=== PATIENT | male | born 1985 | race Hispanic/Latino ===

== ENCOUNTER 2018-05-29 23:24 | Emergency (ER) | payer SELFPAY ==
[2018-05-29] MEDS ORDERED: LIDOCAINE 1% MPF 5 ML VIAL ONE (23:54)
[2018-05-30] MEDS ORDERED: LIDOCAINE 1% MPF 5 ML VIAL ONE (00:16)
--- NOTE | 2018-05-30 00:25 | ER ---
Nurse's Notes [facility] Name: Peng Rasmussen Age: 32 yrs Sex: Male : 1985 Arrival Date: 05/29/2018 Time: 23:24 Bed 24 Private MD: Diagnosis: Laceration without foreign body of knee Presentation: 05/29 23:34 Presenting complaint: Patient states: "I was at work cutting things with a chain saw jd3 and it slipped and I cut my right knee.". Transition of care: patient was not received from another setting of care. Complicating Factors: There are no complicating factors for this patient. Onset of symptoms was May 29, 2018. Risk Assessment: Do you want to hurt yourself or someone else? Patient reports no desire to harm self or others. Initial Sepsis Screen: Does the patient meet any 2 criteria? No. Patient's initial sepsis screen is negative. Does the patient have a suspected source of infection? No. Patient's initial sepsis screen is negative. Care prior to arrival: None. 23:34 Method Of Arrival: Ambulatory jd3 23:34 Acuity: CALLY 4 jd3 Historical: - Allergies: 23:36 No Known Allergies; jd3 - Home Meds: 23:36 None [Active]; jd3 - PMHx: 23:36 None; jd3 - PSHx: 23:36 None; jd3 - Immunization history:: Adult Immunizations unknown. - Social history:: Smoking status: Patient/guardian denies using tobacco. - Ebola Screening: : Patient negative for fever greater than or equal to 101.5 degrees Fahrenheit, and additional compatible Ebola Virus Disease symptoms. Screenin:53 Abuse screen: Denies threats or abuse. Denies injuries from another. Nutritional mg2 screening: No deficits noted. Tuberculosis screening: No symptoms or risk factors identified. Fall Risk None identified. Assessment: 23:49 General: Appears in no apparent distress. comfortable, Behavior is calm, cooperative. mg2 Pain: Complains of pain in right knee Pain does not radiate. Pain currently is 1 out of 10 on a pain scale. Quality of pain is described as aching, Pain began suddenly. Neuro: Level of Consciousness is awake, alert, obeys commands, Oriented to person, place, time, situation. Cardiovascular: Capillary refill < 3 seconds Patient's skin is warm and dry. Respiratory: Airway is patent Respiratory effort is even, unlabored, Respiratory pattern is regular, symmetrical. GI: No signs and/or symptoms were reported involving the gastrointestinal system. : No signs and/or symptoms were reported regarding the genitourinary system. EENT: No signs and/or symptoms were reported regarding the EENT system. Derm: Skin is healthy with good turgor. Musculoskeletal: Circulation, motion, and sensation intact. Capillary refill < 3 seconds. Injury Description: Laceration sustained to right knee is jagged, 0.5 to 2.5 cm long, not bleeding, was sustained 30-60 minutes ago. is bleeding no active bleeding noted. Vital Signs: 23:36 BP 139 / 85; Pulse 69; Resp 16 S; Temp 98.0(O); Pulse Ox 99% on R/A; Weight 97.07 kg jd3 (R); Height 5 ft. 4 in. (162.56 cm) (R); Pain 5/10; 05/30 00:30 BP 122 / 78; Pulse 80; Resp 18; Pulse Ox 100% on R/A; Pain 0/10; mg2 05/29 23:36 Body Mass Index 36.73 (97.07 kg, 162.56 cm) jd3 ED Course: 05/29 11:50 Wound care: to laceration located on medial aspect of right knee was cleaned with jp3 Hibiclens, soaked in Hibiclens solution, debrided using Betadine scrub, irrigated with normal saline, Patient tolerated well. 23:24 Patient arrived in ED. am2 23:26 Julia Auguste FNP-C is PHCP. kb 23:26 Kenneth Garcia MD is Attending Physician. kb 23:35 Triage completed. jd3 23:36 Arm band placed on. jd3 23:48 Claude Hannah, KATIE is Primary Nurse. mg2 23:53 Patient did not have IV access during this emergency room visit. mg2 23:54 Patient has correct armband on for positive identification. mg2 05/30 00:25 Wound care: was dressed with Neosporin, 4X4s, tegaderm on top of gauze.. jp3 00:29 Assist provider with laceration repair on right knee that was 2.5 cm. or less using 8 mg2 stitches made by the provider. Set up tray. Performed by Julia SYED Dressed with 4X4s, Patient tolerated well. Administered Medications: 05/29 23:54 Drug: Lidocaine (1 %) 1 vials {Note: administered by the provider.} Volume: 5 ml; mg2 Route: Infiltration; 05/30 00:29 Follow up: Response: No adverse reaction; Marked relief of symptoms mg2 Outcome: 00:23 Discharge ordered by . luzma 00:30 Discharged to home ambulatory, with family. mg2 00:30 Condition: stable 00:30 Discharge instructions given to patient, family, Instructed on discharge instructions, follow up and referral plans. Demonstrated understanding of instructions, follow-up care. 00:31 Patient left the ED. mg2 Signatures: Julia Auguste FNP-C FNP-Dariela Duval am2 Liu Aiken RN RN jd3 Claude Hannah RN RN mg2 Alfa Melo jp3
--- NOTE | 2018-05-30 00:25 | EDPHYS ---
Physician Documentation [facility] Name: Peng Rasmussen Age: 32 yrs Sex: Male : 1985 Arrival Date: 05/29/2018 Time: 23:24 Bed 24 Private MD: ED Physician Kenneth Garcia HPI: 05/30 00:22 This 32 yrs old Male presents to ER via Ambulatory with complaints of kb Laceration - To Knee. 00:22 The patient has a laceration related to: working, chain saw, occurred at work, and kb there are no complicating factors. The injury was accidental. The laceration(s) is(are) located on the right knee. Onset: The symptoms/episode began/occurred at 16:00. Associated signs and symptoms: The patient has no apparent associated signs or symptoms. The patient has not experienced similar symptoms in the past. The patient has not recently seen a physician. Historical: - Allergies: 05/29 23:36 No Known Allergies; jd3 - Home Meds: 23:36 None [Active]; jd3 - PMHx: 23:36 None; jd3 - PSHx: 23:36 None; jd3 - Immunization history:: Adult Immunizations unknown. - Social history:: Smoking status: Patient/guardian denies using tobacco. - Ebola Screening: : Patient negative for fever greater than or equal to 101.5 degrees Fahrenheit, and additional compatible Ebola Virus Disease symptoms. ROS: 05/30 00:21 Constitutional: Negative for fever, chills, and weight loss, Cardiovascular: Negative kb for chest pain, palpitations, and edema, Respiratory: Negative for shortness of breath, cough, wheezing, and pleuritic chest pain, Abdomen/GI: Negative for abdominal pain, nausea, vomiting, diarrhea, and constipation, Neuro: Negative for headache, weakness, numbness, tingling, and seizure. Skin: Positive for laceration(s), of the right knee. Exam: 00:21 Constitutional: This is a well developed, well nourished patient who is awake, alert, kb and in no acute distress. Head/Face: Normocephalic, atraumatic. Chest/axilla: Normal chest wall appearance and motion. Nontender with no deformity. No lesions are appreciated. Cardiovascular: Regular rate and rhythm with a normal S1 and S2. No gallops, murmurs, or rubs. Normal PMI, no JVD. No pulse deficits. Respiratory: Lungs have equal breath sounds bilaterally, clear to auscultation and percussion. No rales, rhonchi or wheezes noted. No increased work of breathing, no retractions or nasal flaring. Abdomen/GI: Soft, non-tender, with normal bowel sounds. No distension or tympany. No guarding or rebound. No evidence of tenderness throughout. MS/ Extremity: Pulses equal, no cyanosis. Neurovascular intact. Full, normal range of motion. Neuro: Awake and alert, GCS 15, oriented to person, place, time, and situation. Cranial nerves II-XII grossly intact. Motor strength 5/5 in all extremities. Sensory grossly intact. Cerebellar exam normal. Normal gait. 00:21 Skin: injury, laceration(s), the wound is approximately 6 cm(s), of the right knee, that can be described as contaminated, no foreign body, linear, without bleeding. Vital Signs: 05/29 23:36 BP 139 / 85; Pulse 69; Resp 16 S; Temp 98.0(O); Pulse Ox 99% on R/A; Weight 97.07 kg jd3 (R); Height 5 ft. 4 in. (162.56 cm) (R); Pain 5/10; 05/30 00:30 BP 122 / 78; Pulse 80; Resp 18; Pulse Ox 100% on R/A; Pain 0/10; mg2 05/29 23:36 Body Mass Index 36.73 (97.07 kg, 162.56 cm) jd3 Laceration: 00:17 Wound Repair of 6cm ( 2.4in ) subcutaneous laceration to right knee. Linear shaped.. kb Distal neuro/vascular/tendon intact. Anesthesia: Wound infiltrated with 7 mls of 1% lidocaine. Wound prep: Extensive cleansing with hibiclenz by component technician, Wound irrigation with saline by component technician. Skin closed with 7 4-0 Prolene using interrupted sutures and sterile technique. Dressed with Neosporin, non-adherent dressing. Patient tolerated well. MDM: 05/29 23:26 Patient medically screened. kb 05/30 00:17 Data reviewed: vital signs, nurses notes. Data interpreted: Pulse oximetry: on room air kb is 99 %. Interpretation: normal. Counseling: I had a detailed discussion with the patient and/or guardian regarding: the historical points, exam findings, and any diagnostic results supporting the discharge/admit diagnosis, the need for outpatient follow up, a family practitioner, to return to the emergency department if symptoms worsen or persist or if there are any questions or concerns that arise at home. 05/29 23:41 Order name: Prolene, Sutures; Complete Time: 23:55 kb 04 23:41 Order name: Dressing - Wound; Complete Time: 23:55 kb 05/29 23:41 Order name: Gloves, Sterile; Complete Time: 23:55 kb 05/29 23:41 Order name: Setup Suture Tray; Complete Time: 23:55 kb Administered Medications: 05/29 23:54 Drug: Lidocaine (1 %) 1 vials {Note: administered by the provider.} Volume: 5 ml; mg2 Route: Infiltration; 05/30 00:29 Follow up: Response: No adverse reaction; Marked relief of symptoms mg2 Disposition: 08:56 Co-signature as Attending Physician, Kenneth Garcia MD I agree with the assessment and danilo plan of care. Disposition: 05/30/18 00:23 Discharged to Home. Impression: Laceration without foreign body of knee. - Condition is Stable. - Discharge Instructions: Laceration Care, Adult, [id number]. - Medication Reconciliation Form, Thank You Letter, Antibiotic Education, Prescription Opioid Use form. - Follow up: Emergency Department; When: As needed; Reason: Worsening of condition. Follow up: Private Physician; When: 2 - 3 days; Reason: Recheck today's complaints, Continuance of care, Re-evaluation by your physician. Signatures: Julia Auguste, BUSINESS DATABASE ANALYST-C BUSINESS DATABASE ANALYST-Kenneth Burdick MD MD cha Davies, Jonathon, RN RN jClaude Watson RN RN mg2 Corrections: (The following items were deleted from the chart) 00:22 00:21 Skin: injury, laceration(s), the wound is approximately 6 cm(s), of the right kb knee, that can be described as clean, no foreign body, linear, without bleeding, kb 00:31 00:23 05/30/2018 00:23 Discharged to Home. Impression: Laceration without foreign body mg2 of knee. Condition is Stable. Forms are Medication Reconciliation Form, Thank You Letter, Antibiotic Education, Prescription Opioid Use. Follow up: Emergency Department; When: As needed; Reason: Worsening of condition. Follow up: Private Physician; When: 2 - 3 days; Reason: Recheck today's complaints, Continuance of care, Re-evaluation by your physician. kb
== END 2018-05-30 00:31 | disposition home or self-care (01) ==
LOC: ER 23:24
PROC: 0JQN0ZZ Repair Right Lower Leg Subcutaneous Tissue and Fascia, Open Approach (ICD-10-PCS; principal; 2018-05-29)
DX: S81.011A Laceration without foreign body, right knee, initial encounter (principal); W29.3XXA Contact with powered garden and outdoor hand tools and machinery, initial encounter
CPT/HCPCS: 99284

== ENCOUNTER 2022-04-26 04:39 | Emergency (ER) | payer OTHER, SELFPAY ==
[2022-04-26] MEDS ORDERED: ACETAMINOPHEN 500 MG TAB ONE (05:47)
[2022-04-26] MEDS ORDERED: MORPHINE 4 MG/ML SYR ONE (05:47)
[2022-04-26] MEDS ORDERED: ONDANSETRON 4 MG/2 ML VIAL ONE (05:48)
[2022-04-26] MEDS ORDERED: NA CHLORIDE 0.9% 1,000 ML ONE (05:48)
[2022-04-26] MEDS ORDERED: FAMOTIDINE 20 MG/2 ML VIAL IV ONE (05:48)
[2022-04-26] MEDS ORDERED: PROMETHAZINE 25 MG TABLET ONE (05:48)
[2022-04-26 05:58] LABS: Absolute Lymphocytes (CBC) 1.9 K/uL (0.7-4.9); Hematocrit 39.5 % (39.6-49.0); Lymphocytes % 17.6 % (15.3-44.8); MCV 91.5 fL (80-100); MPV 8.8 fL (7.6-11.3); RBC Red Blood Cell Count 4.31 M/uL (4.33-5.43)
[2022-04-26 06:17] LABS: Albumin 3.6 g/dL (3.4-5.0); Bilirubin Total 0.8 mg/dL (0.2-1.0); Potassium 3.7 mmol/L (3.5-5.1); Protein, Total 7.6 g/dL (6.4-8.2)
[2022-04-26 06:50] LABS: SARS-COV-2 RT PCR NEGATIVE (NEGATIVE)
[2022-04-26] MEDS ORDERED: CIPROFLOXACIN 400mg IV 0 MG/0 ML BAG IV ONE (07:33)
[2022-04-26] MEDS ORDERED: METRONIDAZOLE 500mg IVPB 500 MG/100 ML BAG IV ONE (07:33)
[2022-04-26] MEDS ORDERED: CEFTRIAXONE 1000 MG/VIAL ONE (07:42)
[2022-04-26] MEDS ORDERED: NA CHLORIDE 0.9% 100 ML ONE (07:43)
[2022-04-26] MEDS ORDERED: KETOROLAC 30 MG/ML INJ ONE (07:43)
[2022-04-26 10:54] VITALS: BP 183/104; TEMP 97.9; O2SAT 100
--- NOTE | 2022-04-26 15:30 | RAD REPORT ---
EXAM DESCRIPTION: CT - Head Brain Wo Cont - 04/26/2022 7:03 am CLINICAL HISTORY: PAIN COMPARISON: None available TECHNIQUE: Axial CT of the head obtained from the skull apex to the skull base without contrast. Thi s exam was performed according to our departmental dose-optimization program, which includes automate d exposure control, adjustment of the mA and/or kV according to patient size and/or use of iterative reconstruction technique. FINDINGS: No acute intracranial hemorrhage identified. No mass, mass effect, shift of the midline, a bnormal extra-axial fluid collection or CT evidence of acute ischemic change identified. The ventricu lar system is unremarkable. No acute abnormalities of the supratentorial white matter, basal gangli a, cerebellum, or brainstem. The visualized paranasal sinuses and the mastoid air cells are relatively well aerated. No skull fr acture identified. Visualized orbits and globes are unremarkable. IMPRESSION: 1. No acute intracranial abnormality identified. Electronically signed by: Rao Sifuentes 04/26/2022 6:18 AM PARBOILER Due to temporary technical issues with the PACS/Fluency reporting system, reports are being signed by the in house radiologists without review as a courtesy to insure prompt reporting. The interpreting radiologist is fully responsible for the content of the report.
--- NOTE | 2022-04-26 15:31 | RAD REPORT ---
EXAM DESCRIPTION: CT - Abdomen Pelvis W Contrast - 04/26/2022 7:04 am CLINICAL HISTORY: ABD PAIN COMPARISON: None Available. TECHNIQUE: CT of the abdomen and pelvis performed following IV administration of iodinated contras t. This exam was performed according to our departmental dose-optimization program, which includes au tomated exposure control, adjustment of the mA and/or kV according to patient size and/or use of iter ative reconstruction technique. FINDINGS: Lung Bases: The visualized lung bases are clear. Bones: No destructive bone lesions identified. Abdomen: Liver: Hepatomegaly with diffusely decreased density. Gallbladder: No calcified gallstones. Spleen, Pancreas, and Adrenal Glands: The spleen, pancreas, and adrenal glands are unremarkable. Kidneys: No hydronephrosis or obstructing calculus. Punctate nonobstructing left nephrolithiasis. Vasculature: The aorta and IVC have normal caliber and position. The portal vein is patent. The pro ximal visceral and renal arteries are patent. Stomach: The stomach and duodenum have normal course. Other: No free intraperitoneal air. No free fluid or lymphadenopathy. Pelvis: Bladder: Urinary bladder is unremarkable. Bowel: No dilated loops of large or small bowel. Posterior segment wall thickening of the colon wit h adjacent inflammatory change. No well-circumscribed fluid collection. Scattered diverticula of the colon. Appendix: Normal appendix. Pelvis: Prostate is not enlarged. IMPRESSION: 1. Findings compatible with acute uncomplicated diverticulitis of the descending colon . 2. Hepatomegaly and hepatic steatosis. 3. Punctate nonobstructing left nephrolithiasis. Electronically signed by: Rao Sifuentes 04/26/2022 6:35 AM ROOM SERVICE ASSOCIATE Due to temporary technical issues with the PACS/Fluency reporting system, reports are being signed by the in house radiologists without review as a courtesy to insure prompt reporting. The interpreting radiologist is fully responsible for the content of the report.
--- NOTE | 2022-05-13 14:13 | EDPHYS ---
Physician Documentation [facility] Name: Peng Rouse Age: 36 yrs Sex: Male : 1985 Arrival Date: 04/26/2022 Time: 04:42 Bed 19 Private MD: ED Physician Chris Winslow HPI: 04/26 05:18 This 36 yrs old Male presents to ER via Ambulatory with complaints of sp4 Headache, Fever. 07:13 36-year-old male with no significant past medical history presents with 1 week of sp4 headaches and fever and associated lower abdominal pain, patient reports nausea without vomiting and overall feeling unwell having generalized weakness and fatigue. Patient has no prior history of similar problem. Historical: - Allergies: 05:09 No Known Allergies; bb - Home Meds: 05:09 None [Active]; bb - PMHx: 05:09 None; bb - PSHx: 05:09 None; bb - Immunization history:: Client reports receiving the 2nd dose of the Covid vaccine, Moderna. - Social history:: Smoking status: Patient denies any tobacco usage or history of. - Family history:: not pertinent. ROS: 07:13 Constitutional: Negative for weight loss, negative for dizziness, positive for fever sp4 and chills and generalized weakness Eyes: Negative for injury, pain, redness, and discharge, ENT: Negative for injury, pain, and discharge. 07:19 Neck: Negative for injury, pain, and swelling, Cardiovascular: Negative for chest pain, sp4 palpitations, and edema, Respiratory: Negative for shortness of breath, cough, wheezing, and pleuritic chest pain, Abdomen/GI: Negative for vomiting, and constipation, positive for lower abdominal pain, worsening lower abdominal pain on the left side and positive for nausea associated with some diarrhea Back: Negative for injury and pain, : Negative for injury, bleeding, discharge, and swelling, MS/Extremity: Negative for injury and deformity, Skin: Negative for injury, rash, and discoloration, Neuro: Negative for headache, weakness, numbness, tingling, and seizure, Psych: Negative for depression, anxiety, suicide ideation, homicidal ideation, and hallucinations, Allergy/Immunology: Negative for hives, rash, and allergies, Endocrine: Negative for neck swelling, polydipsia, polyuria, polyphagia, and marked weight changes, Hematologic/Lymphatic: Negative for swollen nodes, abnormal bleeding, and unusual bruising. Exam: 07:19 Constitutional: This is a well developed, well nourished patient who is awake, alert, sp4 and in no acute distress. Uncomfortable appearing male Head/Face: Normocephalic, atraumatic. Eyes: Pupils equal round and reactive to light, extra-ocular motions intact. Lids and lashes normal. Conjunctiva and sclera are non-icteric and not injected. Cornea within normal limits. Periorbital areas with no swelling, redness, or edema. ENT: Nares patent. No nasal discharge, no septal abnormalities noted. Tympanic membranes are normal and external auditory canals are clear. Oropharynx with no redness, swelling, or masses, exudates, or evidence of obstruction, uvula midline. Mucous membranes moist. Neck: Trachea midline, no thyromegaly or masses palpated, and no cervical lymphadenopathy. Supple, full range of motion without nuchal rigidity, or vertebral point tenderness. No Meningismus. Chest/axilla: Normal chest wall appearance and motion. Nontender with no deformity. No lesions are appreciated. Cardiovascular: Regular rate and rhythm with a normal S1 and S2. No gallops, murmurs, or rubs. Normal PMI, no JVD. No pulse deficits. Respiratory: Lungs have equal breath sounds bilaterally, clear to auscultation and percussion. No rales, rhonchi or wheezes noted. No increased work of breathing, no retractions or nasal flaring. Abdomen/GI: Soft, with normal bowel sounds. No distension or tympany. Positive for right and left lower abdominal tenderness and positive for abdominal rebound associated with voluntary guarding Back: No spinal tenderness. No costovertebral tenderness. Full range of motion. Skin: Warm, dry with normal turgor. Normal color with no rashes, no lesions, and no evidence of cellulitis. MS/ Extremity: Pulses equal, no cyanosis. Neurovascular intact. Full, normal range of motion. Neuro: Awake and alert, GCS 15, oriented to person, place, time, and situation. Cranial nerves II-XII grossly intact. Motor strength 5/5 in all extremities. Sensory grossly intact. Cerebellar exam normal. Normal gait. Psych: Awake, alert, with orientation to person, place and time. Behavior, mood, and affect are within normal limits. Vital Signs: 05:06 BP 128 / 89; Pulse 84; Resp 16 S; Temp 99.6(O); Pulse Ox 97% on R/A; Weight 108.86 kg bb (R); Height 5 ft. 5 in. (R); Pain 8/10; 05:21 BP 139 / 85; Pulse 92; Resp 18 S; Pulse Ox 96% on R/A; aa9 06:35 BP 121 / 67; Pulse 66; Resp 16; Pulse Ox 94% on R/A; aa9 05:06 Body Mass Index 39.94 (108.86 kg, 165.1 cm) 05:06 Pain Scale: Adult bb Cascade Coma Score: 07:19 Eye Response: spontaneous(4). Motor Response: obeys commands(6). Verbal Response: sp4 oriented(5). Total: 15. MDM: 05:19 Patient medically screened. sp4 07:19 Differential diagnosis: Acute appendicitis, acute viral illness, acute viral sp4 gastroenteritis, acute bacterial gastroenteritis, influenza, acute COVID-19, acute headache. Data reviewed: vital signs, nurses notes, lab test result(s), radiologic studies, CT scan. ED course: Patient arrives with headache, fever, abdominal ache and nausea. CT head revealed no acute abnormality, CT abdomen pelvis revealed findings compatible with acute uncomplicated diverticulitis of the descending colon. There is no bowel obstruction, there is no fluid collection and no sign of colonic perforation, patient will be prescribed a trial of p.o. Keflex and Flagyl for management of diverticulitis at home and we will advise clear liquid diet for the next 24 hours. Patient will be given IV Rocephin and IV Flagyl prior to departure. 04/26 05:28 Order name: CBC with Diff sp4 04/26 05:28 Order name: CMP sp4 04/26 05:28 Order name: Lipase sp4 04/26 05:29 Order name: COVID-19/FLU A+B sp4 04/26 06:18 Order name: Comprehensive Metabolic Panel; Complete Time: 07:08 EDMS 04/26 06:18 Order name: Lipase; Complete Time: 07:08 EDMS 04/26 06:20 Order name: CBC with Automated Diff; Complete Time: 07:08 EDMS 04/26 06:50 Order name: COVID-19/FLU A+B; Complete Time: 07:08 EDMS 04/26 07:02 Order name: CREATININE WHOLE BLOOD; Complete Time: 07:08 EDMS 04/26 05:28 Order name: CT Abd/Pelvis - IV Contrast Only sp4 04/26 05:29 Order name: CT Head Brain wo Cont sp4 04/26 05:28 Order name: IV Saline Lock; Complete Time: 05:54 sp4 04/26 05:28 Order name: Labs collected and sent; Complete Time: 05:54 sp4 Administered Medications: 05:50 Drug: NS 0.9% IV 1000 ml Route: IV; Rate: 1 bolus; Site: right forearm; aa9 05:51 Drug: Ondansetron IVP 4 mg Route: IVP; Site: right forearm; aa9 05:53 Drug: morphine IVP or IV 4 mg Route: IVP; Infused Over: 4 mins; Site: right forearm; aa9 05:54 Drug: Famotidine IVP 20 mg Route: IVP; Site: right forearm; aa9 05:54 Drug: Acetaminophen PO 1000 mg Route: PO; aa9 05:54 Drug: Promethazine PO 25 mg Route: PO; aa9 07:33 Drug: metroNIDAZOLE IVPB 500 mg Volume: 100 ml; Route: IVPB; Rate: 200 ml/hr; Infused bp Over: 30 mins; Site: right forearm; 08:04 Follow up: IV Status: Completed infusion; IV Intake: 100ml bp 08:04 Drug: Rocephin IV 1 grams Route: IV; Rate: bolus; Site: right forearm; bp 08:04 Drug: Ketorolac IVP 30 mg Route: IVP; Site: right forearm; bp Disposition Summary: 04/26/22 07:24 Discharge Ordered Location: Home sp4 Problem: new sp4 Symptoms: have improved sp4 Condition: Stable sp4 Diagnosis - Diverticulitis of large intestine without perforation or abscess without bleeding sp4 - Acute descending colon diverticulitis without abscess, acute febrile illness, acute sp4 headache Followup: sp4 - With: Private Physician - When: 7 - 10 days - Reason: Re-evaluation by your physician Discharge Instructions: - Discharge Summary Sheet sp4 - Diverticulitis, [id number] sp4 Forms: - Thank You Letter sp4 - Antibiotic Education sp4 - Prescription Opioid Use sp4 Prescriptions: - Cephalexin 500 mg Oral Capsule - take 1 capsule by ORAL route every 8 hours for 10 days; 30 capsule; Refills: 0, sp4 Product Selection Permitted - Flagyl 500 mg Oral Tablet - take 1 tablet by ORAL route every 8 hours for 10 days; 30 tablet; Refills: 0, sp4 Product Selection Permitted - Ibuprofen 800 mg Oral Tablet - take 1 tablet by ORAL route every 8 hours As needed take with food; 30 tablet; sp4 Refills: 0, Product Selection Permitted - Tramadol 50 mg Oral Tablet - take 1 tablet by ORAL route every 6 hours as needed; 30 tablet; Refills: 0, sp4 Product Selection Permitted - promethazine 25 mg Oral Tablet - take 1 tablet by ORAL route every 6 hours As needed; 20 tablet; Refills: 0, sp4 Product Selection Permitted Signatures: Dispatcher [employer] Naty Carson RN RN bb Peltier, Brian, RN RN bp Avalos, Aylin, RN RN aa9 Chris Winslow MD MD sp4
--- NOTE | 2022-05-13 14:13 | ER ---
Nurse's Notes [facility] Name: Peng Rouse Age: 36 yrs Sex: Male : 1985 Arrival Date: 04/26/2022 Time: 04:42 Bed 19 Private MD: Diagnosis: Diverticulitis of large intestine without perforation or abscess without bleeding;Acute descending colon diverticulitis without abscess, acute febrile illness, acute headache Presentation: 04/26 05:06 Chief complaint: Patient states: he has had a headache about 10 days now which won't go bb away last night he had a temp of 102 he took tylenol at midnight and he started having abdominal pain yesterday denies vomiting or diarrhea. Coronavirus screen: Client presents with at least one sign or symptom that may indicate coronavirus-19. Ebola Screen: No symptoms or risks identified at this time. Initial Sepsis Screen: Does the patient meet any 2 criteria? No. Patient's initial sepsis screen is negative. Does the patient have a suspected source of infection? No. Patient's initial sepsis screen is negative. Risk Assessment: Do you want to hurt yourself or someone else? Patient reports no desire to harm self or others. Onset of symptoms was April 26, 2022. 05:06 Method Of Arrival: Ambulatory bb 05:06 Acuity: CALLY 3 bb Triage Assessment: 05:09 Headache History: The patient has had previous headaches and this one is different than bb previous episodes. Historical: - Allergies: 05:09 No Known Allergies; bb - Home Meds: 05:09 None [Active]; bb - PMHx: 05:09 None; bb - PSHx: 05:09 None; bb - Immunization history:: Client reports receiving the 2nd dose of the Covid vaccine, Moderna. - Social history:: Smoking status: Patient denies any tobacco usage or history of. - Family history:: not pertinent. Screenin:21 Abuse screen: Denies threats or abuse. Denies injuries from another. Nutritional aa9 screening: No deficits noted. Tuberculosis screening: No symptoms or risk factors identified. Assessment: 05:20 General: Appears uncomfortable, obese, unkempt, Behavior is cooperative, anxious. Pain: aa9 Complains of pain in right lower quadrant and left lower quadrant Pain currently is 8 out of 10 on a pain scale. Also complains of nausea. Neuro: Level of Consciousness is awake, alert, obeys commands, Oriented to person, place, time, situation, Reports headache frontal area. Cardiovascular: Patient's skin is warm and dry. Respiratory: Airway is patent Respiratory effort is even, unlabored. GI: Patient currently denies diarrhea, vomiting. : No signs and/or symptoms were reported regarding the genitourinary system. Derm: Skin is intact, is healthy with good turgor. 06:50 Reassessment: Patient appears in no apparent distress at this time. Patient and/or aa9 family updated on plan of care and expected duration. Pain level reassessed. Patient is alert, oriented x 3, equal unlabored respirations, skin warm/dry/pink. 07:00 Reassessment: RECD REPORT FROM PINKY WILSON. 36YO HM P/W HEADACHE AND FEVER x2 DAYS. S/S bp RESOLVED. DISPO PENDING. Vital Signs: 05:06 BP 128 / 89; Pulse 84; Resp 16 S; Temp 99.6(O); Pulse Ox 97% on R/A; Weight 108.86 kg bb (R); Height 5 ft. 5 in. (R); Pain 8/10; 05:21 BP 139 / 85; Pulse 92; Resp 18 S; Pulse Ox 96% on R/A; aa9 06:35 BP 121 / 67; Pulse 66; Resp 16; Pulse Ox 94% on R/A; aa9 05:06 Body Mass Index 39.94 (108.86 kg, 165.1 cm) bb 05:06 Pain Scale: Adult bb Kaila Coma Score: 07:19 Eye Response: spontaneous(4). Motor Response: obeys commands(6). Verbal Response: sp4 oriented(5). Total: 15. ED Course: 04:42 Patient arrived in ED. ja2 05:08 Triage completed. bb 05:09 Arm band placed on Patient placed in an exam room. Family accompanied patient. bb 05:17 Chris Winslow MD is Attending Physician. sp4 05:22 Patient has correct armband on for positive identification. Bed in low position. Side aa9 rails up X 1. Adult w/ patient. Pulse ox on. NIBP on. 05:27 Gregory, Pinky, RN is Primary Nurse. aa9 05:40 CBC with Diff Sent. aa9 05:40 CMP Sent. aa9 05:40 Lipase Sent. aa9 05:40 Inserted saline lock: 20 gauge in right forearm, using aseptic technique. Blood aa9 collected. 05:54 COVID-19/FLU A+B Sent. aa9 07:10 Primary Nurse role handed off by Pinky Gregoyr RN bp 07:10 Carlos Regalado, RN is Primary Nurse. bp Administered Medications: 05:50 Drug: NS 0.9% IV 1000 ml Route: IV; Rate: 1 bolus; Site: right forearm; aa9 05:51 Drug: Ondansetron IVP 4 mg Route: IVP; Site: right forearm; aa9 05:53 Drug: morphine IVP or IV 4 mg Route: IVP; Infused Over: 4 mins; Site: right forearm; aa9 05:54 Drug: Famotidine IVP 20 mg Route: IVP; Site: right forearm; aa9 05:54 Drug: Acetaminophen PO 1000 mg Route: PO; aa9 05:54 Drug: Promethazine PO 25 mg Route: PO; aa9 07:33 Drug: metroNIDAZOLE IVPB 500 mg Volume: 100 ml; Route: IVPB; Rate: 200 ml/hr; Infused bp Over: 30 mins; Site: right forearm; 08:04 Follow up: IV Status: Completed infusion; IV Intake: 100ml bp 08:04 Drug: Rocephin IV 1 grams Route: IV; Rate: bolus; Site: right forearm; bp 08:04 Drug: Ketorolac IVP 30 mg Route: IVP; Site: right forearm; bp Intake: 08:04 IV: 100ml; Total: 100ml. bp Outcome: 07:24 Discharge ordered by . sp4 08:49 Patient left the ED. jb4 Signatures: Naty Reed RN RN bb Bryson, James, RN RN jb4 Carlos Regalado RN RN bp Alexander, Jessica ja2 Avalos, Aylin, RN RN aa9 Potepalov, Sergey, MD MD sp4 Corrections: (The following items were deleted from the chart) 06:50 06:50 Reassessment: Patient appears in no apparent distress at this time. Patient aa9 and/or family updated on plan of care and expected duration. Pain level reassessed. Patient is alert, oriented x 3, equal unlabored respirations, skin warm/dry/pink. Patient states feeling better. Patient states symptoms have improved. aa9 06:51 06:35 BP 126 / 97; Pulse 75bpm; Resp 16bpm; Pulse Ox 94% RA; aa aa9
== END 2022-04-26 08:49 | disposition home or self-care (01) ==
LOC: ER 04:39
DX: K57.32 Diverticulitis of large intestine without perforation or abscess without bleeding (principal); R50.9 Fever, unspecified; R51.9 Headache, unspecified
CPT/HCPCS: 0240U; 36415; 70450; 74177; 80053; 82565; 83690; 85025; 96365; 96375; 99284; J0744; J2405; J7030; Q0169; Q9967

== ENCOUNTER 2023-10-08 22:05 | Emergency (ER) | payer SELFPAY ==
[2023-10-09 00:04] LABS: Absolute Eosinophils 0.2 K/uL (0-0.5); Absolute Lymphocytes (CBC) 2.2 K/uL (0.7-4.9); Absolute Monocytes 0.8 K/uL (0.1-1.3); Absolute Neutrophil 5.6 K/uL (1.8-8.0); Basophils % 0.4 % (0-1.3); Eosinophils % 2.2 % (0-4.4); Hematocrit 40.1 % (39.6-49.0); Hemoglobin 13.5 g/dL (13.6-17.9); Lymphocytes % 25.2 % (15.3-44.8); MCH 31.2 pg (27.0-35.0); MCHC 33.6 g/dL (32.0-36.0); MCV 92.8 fL (80-100); Monocytes % 8.8 % (3.3-12.3); Neutrophils % 63.4 % (41.7-73.7); Platelets 265 thou/uL (152-406); RBC Red Blood Cell Count 4.32 M/uL (4.33-5.43); Red Cell Distribution Width 13.9 % (12.1-15.2)
[2023-10-09 00:13] LABS: Albumin 3.5 g/dL (3.4-5.0); Albumin/Globulin Ratio 0.9 (1.1-1.8); Anion Gap 7.6 mEq/L (5.0-15.0); Bilirubin Total 0.5 mg/dL (0.2-1.0); Potassium 3.6 mEq/L (3.5-5.1); Protein, Total 7.5 g/dL (6.4-8.2)
[2023-10-09 00:15] LABS: SARS-CoV-2 Antigen CONTROL BLUE LINE VIS/BG OK; SARS-CoV-2 Antigen Rapid Res Negative (Negative)
[2023-10-09 00:23] LABS: Specific Gravity 1.025 (1.005-1.030); Sqamous Epithelial <5 /HPF (None Seen); Urine Bacteria None Seen /HPF (<20); Urine Bilirubin NEGATIVE (Negative); Urine Blood Negative (Negative); Urine Clarity Extremely Turbid (Clear); Urine Color Light-Yellow (Yellow); Urine Crystals Unidentified Few /HPF (None Seen); Urine Culture Reflex Order NOT NEEDED; Urine Glucose NEGATIVE (Negative); Urine Ketones NEGATIVE (Negative); Urine Microscopic Reflex YN ORDER UMIC; Urine Mucus Slight /HPF (None Seen); Urine Nitrite NEGATIVE (Negative); Urine Protein TRACE (Negative); Urine RBC <5 /HPF (None Seen); Urine Urobilinogen Normal (Normal); Urine WBC <5 /HPF (<5); Urine pH 6.5 (5.0-7.0)
[2023-10-09] MEDS ORDERED: metroNIDAZOLE 500 MG TABLET ONE (02:06)
[2023-10-09] MEDS ORDERED: CIPROFLOXACIN HCL 500 MG TAB ONE (02:06)
[2023-10-09] MEDS ORDERED: MORPHINE 4 MG/ML SYR ONE (02:06)
--- NOTE | 2023-10-09 02:17 | ER ---
Nurse's Notes [facility] Name: Peng Rouse Age: 38 yrs Sex: Male : 1985 Arrival Date: 10/08/2023 Time: 22:05 Bed 15 Private MD: Diagnosis: Diverticulitis of large intestine without perforation or abscess without bleeding Presentation: 10/07 22:40 Chief complaint: Patient states: having pain in the lower abdomen since yesterday and rg5 little bit of diarrhea. 22:40 Coronavirus screen: Vaccine status:. Coronavirus screen: Client denies travel out of 5 the [place] in the last 14 days. Ebola Screen: Patient negative for fever greater than or equal to 101.5 degrees Fahrenheit, and additional compatible Ebola Virus Disease symptoms. Initial Sepsis Screen: Does the patient meet any 2 criteria? No. Patient's initial sepsis screen is negative. Does the patient have a suspected source of infection? No. Patient's initial sepsis screen is negative. Risk Assessment: Do you want to hurt yourself or someone else? Patient reports no desire to harm self or others. Onset of symptoms was October 09, 2023. 22:40 Method Of Arrival: Ambulatory rg5 22:40 Acuity: CALLY 3 rg5 Triage Assessment: 22:47 General: Appears in no apparent distress. comfortable, Behavior is calm, cooperative, rg5 appropriate for age. Pain: Complains of pain in abdomen Pain does not radiate. Pain currently is 4 out of 10 on a pain scale. Quality of pain is described as aching, Pain began 1 day ago. Is intermittent, Alleviated by medications. EENT: No deficits noted. Neuro: Level of Consciousness is awake, alert, obeys commands, Oriented to person, place, time, situation. Cardiovascular: Capillary refill < 3 seconds Patient's skin is warm and dry. Respiratory: Airway is patent Trachea midline Respiratory effort is even, unlabored, Respiratory pattern is regular. GI: Abdomen is round Abd is soft and non tender Reports lower abdominal pain, diarrhea. : No signs and/or symptoms were reported regarding the genitourinary system. Derm: Skin is intact, Skin is dry, Skin is normal, Skin temperature is warm. Musculoskeletal: Range of motion: intact in all extremities. Historical: - Allergies: 22:40 No Known Allergies; rg5 - Home Meds: 22:40 None [Active]; rg5 - PMHx: 22:40 None; rg5 - PSHx: 22:40 None; rg5 - Immunization history:: Adult Immunizations up to date. - Infectious Disease History:: Denies. - Family history:: not pertinent. - Social history:: Smoking status: Patient denies any tobacco usage or history of. - Hospitalizations: : No recent hospitalization is reported. Screenin/19 00:38 [facility] ED Fall Risk Assessment (Adult) History of falling in the last 3 months, rg5 including since admission No falls in past 3 months (0 pts) Confusion or Disorientation No (0 pts) Intoxicated or Sedated No (0 pts) Impaired Gait No (0 pts) Mobility Assist Device Used No (0 pt) Altered Elimination No (0 pt) Score/Fall Risk Level 0 - 2 = Low Risk Oriented to surroundings, Maintained a safe environment, Hourly rounding (assess needs \T\ fall precautionary measures) done. 00:38 Abuse screen: Denies threats or abuse. rg5 00:38 Nutritional screening: No deficits noted. Tuberculosis screening: No symptoms or risk rg5 factors identified. Assessment: 10/07 22:40 Reassessment: see triage assessment. rg5 23:30 Reassessment: Patient and/or family updated on plan of care and expected duration. Pain rg5 level reassessed. Patient is alert, oriented x 3, equal unlabored respirations, skin warm/dry/pink. 10/08 00:36 Reassessment: Patient and/or family updated on plan of care and expected duration. Pain rg5 level reassessed. Patient is alert, oriented x 3, equal unlabored respirations, skin warm/dry/pink. 00:38 GI: Bowel sounds present in left upper quadrant Abd is soft and non tender. rg5 01:33 Reassessment: Patient and/or family updated on plan of care and expected duration. Pain rg5 level reassessed. Patient is alert, oriented x 3, equal unlabored respirations, skin warm/dry/pink. Patient states symptoms have improved. 02:35 Reassessment: Patient and/or family updated on plan of care and expected duration. Pain rg5 level reassessed. Patient is alert, oriented x 3, equal unlabored respirations, skin warm/dry/pink. Patient states feeling better. Vital Signs: 10/07 22:40 BP 149 / 91; Pulse 57; Resp 18; Temp 98.7; Pulse Ox 99% on R/A; Weight 99.34 kg; Height rg5 5 ft. 6 in. ; Pain 4/10; 23:30 BP 148 / 91; Pulse 56; Resp 17; Pulse Ox 99% on R/A; rg5 10/08 00:37 BP 144 / 88; Pulse 57; Resp 17; Pulse Ox 99% on R/A; Pain 3/10; rg5 01:40 BP 140 / 85; Pulse 57; Resp 17; Pulse Ox 99% on R/A; rg5 02:35 BP 138 / 88; Pulse 58; Resp 17; Pulse Ox 99% on R/A; Pain 2/10; rg5 10/07 22:40 Body Mass Index 35.35 (99.34 kg, 167.64 cm) rg5 10/07 22:40 Pain Scale: Adult rg5 10/08 00:37 Pain Scale: Adult rg5 02:35 Pain Scale: Adult rg5 ED Course: 10/07 22:08 Patient arrived in ED. jj6 22:10 Steve Reyes MD is Attending Physician. rn 22:47 Arm band placed on right wrist. rg5 23:00 Door closed. Noise minimized. Warm blanket given. rg5 23:05 Ra Marinelli, KATIE is Primary Nurse. rg5 10/08 00:29 Triage completed. rg5 00:31 CT Abd/Pelvis - IV Contrast Only In Process Unspecified. EDMS 00:38 Awaiting lab results. rg5 00:38 Patient has correct armband on for positive identification. Placed in gown. Bed in low rg5 position. Call light in reach. Side rails up X 1. Adult w/ patient. 00:38 No provider procedures requiring assistance completed. Inserted saline lock: 20 gauge rg5 in right antecubital area, using aseptic technique. Blood collected. Flushed with 10 mL NS. 02:16 Jourdan Ladd MD is Referral Physician. rn 02:51 IV discontinued, bleeding controlled, No redness/swelling at site. Pressure dressing rg5 applied. 02:52 Provided Education on: post er care. rg5 Administered Medications: 02:05 Drug: Ciprofloxacin PO 500 mg PO once Route: PO; rg5 02:49 Follow up: Response: No adverse reaction rg5 02:05 Drug: metroNIDAZOLE PO 500 mg PO once Route: PO; rg5 02:48 Follow up: Response: No adverse reaction; Pain is decreased rg5 02:05 Drug: morphine IVP or IV 4 mg IVP once over 4 mins Route: IVP; Infused Over: 4 mins; rg5 Site: right antecubital; 02:48 Follow up: Response: No adverse reaction; Pain is decreased rg5 Medication: 00:38 VIS not applicable for this client. rg5 Outcome: 02:16 Discharge ordered by . rn 02:51 Discharged to home ambulatory, rg5 02:51 Condition: good 02:51 Discharge instructions given to patient, family, Instructed on discharge instructions, follow up and referral plans. Demonstrated understanding of instructions, follow-up care, medications, Prescriptions given X 3, 02:52 Patient left the ED. rg5 Signatures: Dispatcher [employer] EDSteve Knight MD MD rn Jeffries, Jennifer jj6 Gallardo, Rommel, RN RN rg5
--- NOTE | 2023-10-09 02:17 | EDPHYS ---
Physician Documentation [facility] Name: Peng Rouse Age: 38 yrs Sex: Male : 1985 Arrival Date: 10/08/2023 Time: 22:05 Bed 15 Private MD: ED Physician Steve Reyes HPI: 10/07 22:47 This 38 yrs old Male presents to ER via Unassigned with complaints of rn Abdominal Pain, Fever. 22:47 The patient reports fever, not measured (subjective). rn 22:47 Onset: The symptoms/episode began/occurred 1 day(s) ago. Modifying factors: there are rn no obvious modifying factors. Severity of symptoms: At their worst the symptoms were mild in the emergency department the symptoms are unchanged. The patient has experienced a previous episode. The patient has not recently seen a physician. Reports lower abd pain, diarrhea, non-bloody, assoc with runny nose and congestion. No trauma. . Historical: - Allergies: 22:40 No Known Allergies; rg5 - Home Meds: 22:40 None [Active]; rg5 - PMHx: 22:40 None; rg5 - PSHx: 22:40 None; rg5 - Immunization history:: Adult Immunizations up to date. - Infectious Disease History:: Denies. - Family history:: not pertinent. - Social history:: Smoking status: Patient denies any tobacco usage or history of. - Hospitalizations: : No recent hospitalization is reported. ROS: 22:47 Constitutional: + subjective fever Cardiovascular: Negative for chest pain, rn palpitations, and edema, Respiratory: Negative for shortness of breath, cough, wheezing, and pleuritic chest pain, Abdomen/GI: + abd pain and diarrhea MS/Extremity: Negative for injury and deformity, Skin: Negative for injury, rash, and discoloration, Neuro: Negative for weakness, numbness, tingling, and seizure, Exam: 22:46 Constitutional: This is a well developed, well nourished patient who is awake, alert, rn and in no acute distress. Cardiovascular: Regular rate and rhythm. No pulse deficits. Respiratory: No increased work of breathing, no retractions or nasal flaring. Abdomen/GI: soft, mild RLQ and LLQ tenderness, no rebound/guarding/peritoneal signs Neuro: Awake and alert, GCS 15 Vital Signs: 22:40 BP 149 / 91; Pulse 57; Resp 18; Temp 98.7; Pulse Ox 99% on R/A; Weight 99.34 kg; Height rg5 5 ft. 6 in. ; Pain 4/10; 23:30 BP 148 / 91; Pulse 56; Resp 17; Pulse Ox 99% on R/A; 5 10/08 00:37 BP 144 / 88; Pulse 57; Resp 17; Pulse Ox 99% on R/A; Pain 3/10; rg5 01:40 BP 140 / 85; Pulse 57; Resp 17; Pulse Ox 99% on R/A; rg5 02:35 BP 138 / 88; Pulse 58; Resp 17; Pulse Ox 99% on R/A; Pain 2/10; rg5 10/07 22:40 Body Mass Index 35.35 (99.34 kg, 167.64 cm) [facility] 10/07 22:40 Pain Scale: Adult [facility] 10/08 00:37 Pain Scale: Adult [facility] 02:35 Pain Scale: Adult [facility] MDM: 10/07 22:10 Patient medically screened. rn 10/08 02:15 Differential diagnosis: viral Infection, bacterial infection, Diverticulitis, colitis. rn Data reviewed: vital signs, nurses notes, lab test result(s), radiologic studies, CT scan, and as a result, I will discharge patient. Counseling: I had a detailed discussion with the patient and/or guardian regarding the historical points, exam findings, and any diagnostic results supporting the discharge/admit diagnosis, lab results, radiology results, the need for outpatient follow up, to return to the emergency department if symptoms worsen or persist or if there are any questions or concerns that arise at home. Response to treatment: the patient's symptoms have mildly improved after treatment, and as a result, I will discharge patient. Special discussion: I discussed with the patient/guardian in detail that at this point there is no indication for admission to the hospital. It is understood, however, that if the symptoms persist or worsen the patient needs to return immediately for re-evaluation. Based on the history and exam findings, there is no indication for further emergent testing or inpatient evaluation. I discussed with the patient/guardian the need to see the electrical instrumentation technician for further evaluation of the symptoms. ED course: CT shows diverticulitis. Same focal thickening as previous diverticulitis raises the concern for possible malignancy. Will discharge home with oral antibiotics and discussed case with patient and and need for GI follow-up once infection is gone for colonoscopy to rule out malignancy.. 10/07 22:46 Order name: SARS RAPID; Complete Time: 00:24 rn 10/07 22:46 Order name: Flu; Complete Time: 00:24 rn 10/07 22:46 Order name: CBC with Diff; Complete Time: 00:24 rn 10/07 22:46 Order name: CMP; Complete Time: 00:24 rn 10/07 22:46 Order name: Lipase; Complete Time: 00:24 rn 10/07 22:46 Order name: Urinalysis w/ reflexes; Complete Time: 00:24 rn 10/07 22:46 Order name: CT Abd/Pelvis - IV Contrast Only rn 10/07 22:46 Order name: IV Saline Lock; Complete Time: 23:49 rn 10/07 22:46 Order name: Labs collected and sent; Complete Time: 23:49 rn Administered Medications: 02:05 Drug: Ciprofloxacin PO 500 mg PO once Route: PO; rg5 02:49 Follow up: Response: No adverse reaction rg5 02:05 Drug: metroNIDAZOLE PO 500 mg PO once Route: PO; rg5 02:48 Follow up: Response: No adverse reaction; Pain is decreased rg5 02:05 Drug: morphine IVP or IV 4 mg IVP once over 4 mins Route: IVP; Infused Over: 4 mins; rg5 Site: right antecubital; 02:48 Follow up: Response: No adverse reaction; Pain is decreased rg5 Disposition Summary: 10/09/23 02:16 Discharge Ordered Notes: Location: Home rn Problem: new rn Symptoms: have improved rn Condition: Stable rn Diagnosis - Diverticulitis of large intestine without perforation or abscess without bleeding rn Followup: rn - With: Jourdan Ladd MD - When: As needed - Reason: Recheck today's complaints, Re-evaluation by your physician Discharge Instructions: - Discharge Summary Sheet rn - Diverticulitis rn Forms: - Medication Reconciliation Form rn - Antibiotic ornamenter - Prescription Opioid Use rn - Patient Portal Instructions rn - Leadership Thank You Letter rn Prescriptions: - Flagyl 500 mg Oral Tablet - take 1 tablet ORAL route every 8 hours for 10 days; 30 tablet; Refills: 0, rn Product Selection Permitted - Cipro 500 mg Oral tablet - take 1 tablet ORAL route every 12 hours for 10 days; 20 tablet; Refills: 0, rn Product Selection Permitted - Tramadol 50 mg Oral Tablet - take 1 tablet ORAL route every 8 hours as needed; 12 tablet; Refills: 0, rn Product Selection Permitted Signatures: Dispatcher [employer] Steve Mai MD MD rn Gallardo, Rommel, RN RN rg5
[2023-10-09 03:28] VITALS: TEMP 98.7; O2SAT 99
[2023-10-09 03:35] VITALS: BP 138/88
--- NOTE | 2023-10-10 19:01 | RAD REPORT ---
EXAM DESCRIPTION: CT - Abdomen Pelvis W Contrast - 10/10/2023 2:12 pm CLINICAL HISTORY: The patient is 38 years old and is Male; Abdominal pain. TECHNIQUE: Axial computed tomography images of the abdomen and pelvis with intravenous contrast. S agittal and coronal reformatted images were created and reviewed. This CT exam was performed using one or more of the following dose reduction techniques: automated exposure control, adjustment of t he mA and/or kV according to patient size, and/or use of iterative reconstruction technique. CONTRAST: Details not mentioned. COMPARISON: CT Abdomen Pelvis 04/26/2022. FINDINGS: Lung bases: No acute infiltrate. ABDOMEN: Liver: Liver diffusely fatty. Gallbladder and bile ducts: No calcified stones. No ductal dilation. Pancreas: Homogeneous enhancement. No mass, inflammation or ductal dilation. Spleen: No splenomegaly. Adrenals: No mass. Kidneys and ureters: No solid mass. No hydronephrosis. Stomach and bowel: Stomach grossly normal. Bowel nondilated. Thickening and luminal narrowing of th e proximal sigmoid colon. Increased attenuation and stranding of the surrounding fat, thickening of t he adjacent peritoneum. No abscess. Same location as abnormal sigmoid colon with similar findings on the prior study April 26, 2022, except a few centimeters longer abnormality currently (9 cm compared t o 6 cm). Mild diverticulosis of the sigmoid colon. PELVIS: Appendix: Normal appendix. Bladder: Not abnormally dilated. Reproductive: Within normal limits. ABDOMEN and PELVIS: Intraperitoneal space: No intraperitoneal free air. Bones/joints: No acute fracture or dislocation. No aggressive lesion. Soft tissues: Normal body wall soft tissues. Vasculature: Normal aorta. Lymph nodes: A few small abnormally rounded and enhancing lymph nodes in the fat adjacent to the abnormal sigmoid. IMPRESSION: 1. Markedly abnormal proximal sigmoid colon, with circumferential thickening and surro unding inflammatory/edematous change of the fat. Same location as abnormality on the prior study 5 mo nths ago, except currently longer segment of abnormality. Additionally, development of adjacent lymph adenopathy. Although the findings are likely acute uncomplicated diverticulitis, inflammatory tumor i s in the differential. Consider colonoscopy. 2. Liver diffusely fatty. Electronically signed by: Steffi Segovia MD 10/09/2023 01:45 AM CDT RP Due to temporary technical issues with the PACS/Fluency reporting system, reports are being signed by the in house radiologists without review as a courtesy to insure prompt reporting. The interpreting radiologist is fully responsible for the content of the report.
== END 2023-10-09 02:52 | disposition home or self-care (01) ==
LOC: ER 22:05
DX: K57.32 Diverticulitis of large intestine without perforation or abscess without bleeding (principal); Z11.52 Encounter for screening for COVID-19
CPT/HCPCS: 36415; 74177; 80053; 81001; 83690; 85025; 87804; 87811; Q9967